=== PATIENT | female | born 1970 | race Caucasian/White ===

== ENCOUNTER 2018-10-25 14:33 | Emergency (ER) | payer SELFPAY ==
--- NOTE | 2018-10-25 14:49 | PDOC ---
Rapid Medical Evaluation Time Seen by Provider: 10/25/18 14:44 Medical Evaluation: 10/25/18 14:45 Pt c/o: head and neck throbbing pain x 6 months, relieved with motrin but returns, denies fever, visual changes or a pmd, no med tx prior to today pt on brief exam: vss, perrl, no lrom of neck pt ordered for: labs, ua, head ct pt to proceed to ED Discharge Disposition - Diagnosis Headache - Referrals - Patient Instructions - Post Discharge Activity
[2018-10-25] MEDS ORDERED: SODIUM CHLORIDE 1,000 ML IV STA (14:50)
[2018-10-25] MEDS ORDERED: KETOROLAC TROMETHAMINE 30 MG/1 ML VIAL IVPUSH ONE (14:50)
[2018-10-25 14:51] VITALS: BMI 22.2
[2018-10-25] MEDS ORDERED: METOCLOPRAMIDE HCL INJECTION 10 MG/2 ML VIAL ONE ×2 (15:39→16:27)
[2018-10-25] MEDS ORDERED: KETOROLAC TROMETHAMINE 30 MG/1 ML VIAL ONE ×2 (15:40→16:27)
--- NOTE | 2018-10-25 15:40 | PDOC ---
*Physical Exam - Vital Signs Last Vital Signs Temp Pulse Resp BP Pulse Ox 98.1 F 57 L 16 153/82 100 10/25/18 14:40 10/25/18 14:40 10/25/18 14:40 10/25/18 14:40 10/25/18 14:40 ED Treatment Course - LABORATORY CBC & Chemistry Diagram: 10/25/18 16:20 10/25/18 16:20 Medical Decision Making - Medical Decision Making 10/25/18 15:40 Ms. Usman Fishman is a 47 yo F who presents to the ER with 6 months of intermittent headaches (from the back of her neck and radiating around to her temples) Motrin which helps her symptoms but has not taken any meds today. Denies fevers, chills, nausea, vomiting, lightheadedness, dizziness, weakness and loss of consciousness. Pt pending CT Pending labs Given medications Awaiting results and re assessment Pt seen by Midlevel Provider under my direct supervision Ancillary studies pending I agree with plan as outlined by Midlevel Provider *DC/Admit/Observation/Transfer Diagnosis at time of Disposition: Headache Qualifiers: Headache type: tension-type Headache chronicity pattern: acute headache Intractability: not intractable Qualified Code(s): G44.209 - Tension-type headache, unspecified, not intractable - Discharge Dispostion Disposition: HOME Condition at time of disposition: Stable - Prescriptions Prescriptions: Butalb/Acetaminophen/Caffeine [Fioricet 50-300-40 mg Capsule] 1 each PO Q8H PRN #20 capsule PRN Reason: headache Methocarbamol [Robaxin -] 500 mg PO BID PRN #14 tablet PRN Reason: neck pain - Referrals Referrals: Pato Son MD [Staff Physician] - - Patient Instructions Printed Discharge Instructions: Tension Headache Additional Instructions: Your labs and head CAT scan is normal.Take prescribed medications as needed for headaches. Follow-up with referred neurologist if no improvement in 3 days Print Language: CITIZEN OF [place] - Post Discharge Activity
[2018-10-25] MEDS ORDERED: METOCLOPRAMIDE HCL INJECTION 10 MG/2 ML VIAL IVPB ONE (15:41)
--- NOTE | 2018-10-25 16:16 | PDOC ---
History of Present Illness - General Chief Complaint: Headache Stated Complaint: Headache Time Seen by Provider: 10/25/18 14:44 History Source: Patient Exam Limitations: Language Barrier (WhoJamracom used ) Past History - Travel Traveled outside of the country in the last 30 days: No Close contact w/someone who was outside of country & ill: No - Past Medical History Allergies/Adverse Reactions: Allergies Allergy/AdvReac Type Severity Reaction Status Date / Time No Known Allergies Allergy Verified 10/25/18 14:47 COPD: No - Suicide/Smoking/Psychosocial Hx Smoking History: Never smoked Hx Alcohol Use: No Drug/Substance Use Hx: No Review of Systems - Review of Systems Able to Perform ROS?: Yes Comments:: 10/25/18 16:11 CONSTITUTIONAL: Absent: fever, chills, diaphoresis, generalized weakness, malaise, loss of appetite HEENT: Present: neck pain Absent: rhinorrhea, nasal congestion, throat pain, throat swelling, difficulty swallowing, mouth swelling, ear pain, eye pain, visual Changes CARDIOVASCULAR: Absent: chest pain, loss of consciousness, palpitations, irregular heart rate, peripheral edema RESPIRATORY: Absent: cough, shortness of breath, dyspnea with exertion, orthopnea, wheezing, stridor, hemoptysis GASTROINTESTINAL: Absent: abdominal pain, abdominal distension, nausea, vomiting, diarrhea, constipation, melena, hematochezia GENITOURINARY: Absent: dysuria, frequency, urgency, hesitancy, hematuria, flank pain, genital pain MUSCULOSKELETAL: Absent: myalgia, arthralgia, joint swelling SKIN: Absent: rash, itching, pallor HEMATOLOGIC/IMMUNOLOGIC: Absent: easy bleeding, easy bruising, lymphadenopathy, frequent infections ENDOCRINE: Absent: unexplained weight gain, unexplained weight loss, heat intolerance, cold intolerance NEUROLOGIC: Present: headache Absent: focal weakness or paresthesias, dizziness, unsteady gait, seizure, mental status changes, bladder or bowel incontinence PSYCHIATRIC: Absent: anxiety, depression, suicidal or homicidal ideation, hallucinations. Is the patient limited Pashto proficient: No *Physical Exam - Vital Signs Last Vital Signs Temp Pulse Resp BP Pulse Ox 98.1 F 57 L 16 153/82 100 10/25/18 14:40 10/25/18 14:40 10/25/18 14:40 10/25/18 14:40 10/25/18 14:40 - Physical Exam Comments: 10/25/18 16:10 GENERAL: Well developed, well nourished. Awake and alert. No acute distress. HEENT: Normocephalic, atraumatic. PERRLA, EOMI. No conjunctival pallor. Sclera are non- icteric. Moist mucous membranes. Oropharynx is clear. NECK: TTP at the paraspinous muscles at the occipital insert b/l with palpable spasm. Supple. Decreased ROM d/t pain. No JVD. Carotid pulses 2+ and symmetric, without bruits. No thyromegaly. No lymphadenopathy. CARDIOVASCULAR: Regular rate and rhythm. No murmurs, rubs, or gallops. Distal pulses are 2+ and symmetric. PULMONARY: No evidence of respiratory distress. Lungs clear to auscultation bilaterally. No wheezing, rales or rhonchi. ABDOMINAL: Soft. Non-tender. Non-distended. No rebound or guarding. No organomegaly. Normoactive bowel sounds. MUSCULOSKELETAL Normal range of motion at all joints. No bony deformities or tenderness. No CVA tenderness. EXTREMITIES: No cyanosis. No clubbing. No edema. No calf tenderness. SKIN: Warm and dry. Normal capillary refill. No rashes. No jaundice. NEUROLOGICAL: Alert, awake, appropriate. Cranial nerves 2-12 intact. No deficits to light touch and temperature in face, upper extremities and lower extremities. No motor deficits in the in face, upper extremities and lower extremities. Normoreflexic in the upper and lower extremities. Normal speech. Toes are down- going bilaterally. Gait is normal without ataxia. PSYCHIATRIC: Cooperative. Good eye contact. Appropriate mood and affect. Medical Decision Making - Medical Decision Making 10/25/18 16:12 he patient is a 47-year-old female who presents to the ER with 6 months of intermittent headaches. She states that the pain is usually in the back of her neck and wraps around her temples She states she feels the pain behind her eyes. She usually takes Motrin which helps her symptoms. She states that today the pain was worse so she came to the ER for evaluation.She did not take any medication prior to arrival.Denies fevers, chillsnausea, vomiting, lightheadedness, dizziness weakness and loss of consciousness. A/P:Headache On exam patient with palpable paraspinous muscles in spasm at the base of the occiput bilaterally. The patient is able to touch her chin to her chest She also has decreased range of motion laterally in her neck due to pain. Patient is neurologically intact with no gross deficits. Suspect tension headaches d/t length of symptoms. Unlikely meningitis or SAH. CT scan basic labs, meds ordered Sign out given to PREMA Villanueva. Pt pending CT scan and lab results. *DC/Admit/Observation/Transfer Diagnosis at time of Disposition: Headache - Referrals - Patient Instructions - Post Discharge Activity
--- NOTE | 2018-10-25 16:46 | PDOC ---
*Physical Exam - Vital Signs Last Vital Signs Temp Pulse Resp BP Pulse Ox 98.1 F 57 L 16 153/82 100 10/25/18 14:40 10/25/18 14:40 10/25/18 14:40 10/25/18 14:40 10/25/18 14:40 - Physical Exam General Appearance: Yes: Nourished, Appropriately Dressed. No: Apparent Distress HEENT: positive: Normal ENT Inspection, Normal Voice Neck: positive: Supple Respiratory/Chest: positive: Lungs Clear, Normal Breath Sounds. negative: Respiratory Distress, Accessory Muscle Use Cardiovascular: positive: Regular Rhythm, Regular Rate Gastrointestinal/Abdominal: positive: Normal Bowel Sounds Integumentary: positive: Normal Color Neurologic: positive: station cashier II-XII NML intact, Fully Oriented, Alert, Normal Mood/ Affect, Normal Response ED Treatment Course - LABORATORY CBC & Chemistry Diagram: 10/25/18 16:20 10/25/18 16:20 - Medications Given in the ED: ED Medications Discontinued Medications Generic Name Dose Route Start Last Admin Trade Name Nevin PRN Reason Stop Dose Admin Diphenhydramine HCl 25 mg 10/25/18 14:50 10/25/18 16:35 Benadryl Injection - IVPUSH 10/25/18 14:51 25 mg ONCE ONE Administration Sodium Chloride 1,000 mls @ 1,000 mls/hr 10/25/18 14:50 10/25/18 16:35 Normal Saline - IV 10/25/18 15:49 1,000 mls/hr ASDIR STA Administration Ketorolac Tromethamine 30 mg 10/25/18 14:50 10/25/18 16:35 Toradol Injection - IVPUSH 10/25/18 14:51 30 mg ONCE ONE Administration Metoclopramide HCl 10 mg 10/25/18 15:41 10/25/18 16:35 Reglan Injection - IVPB 10/25/18 15:42 10 mg ONCE ONE Administration Medical Decision Making - Medical Decision Making 10/25/18 16:44 I resumed care of this 47-year-old female present with complaint of 6 months history of posterior neck pain and frontal headaches which has been his persistent. Denies nausea, vomiting, dizziness, fever or chills. CBC, CMP, UA and urine labs ordered from previous shift. IV hydration with normal saline being given by previous shift. Patient pending head CT and Zofran and Reglan given for headache 10/25/18 18:32 cbc,wbc unremarkable. head CT with no acute pathology. Patient symptoms likely tension GUEVARA caused by neck spasm. Patient stable for outpatient management on fioricet for headaches and robaxin muscle relaxer with neurology f/u *DC/Admit/Observation/Transfer Diagnosis at time of Disposition: Headache Qualifiers: Headache type: tension-type Headache chronicity pattern: acute headache Intractability: not intractable Qualified Code(s): G44.209 - Tension-type headache, unspecified, not intractable - Discharge Dispostion Disposition: HOME Condition at time of disposition: Stable Decision to Admit order: No - Prescriptions Prescriptions: Butalb/Acetaminophen/Caffeine [Fioricet 50-300-40 mg Capsule] 1 each PO Q8H PRN #20 capsule PRN Reason: headache Methocarbamol [Robaxin -] 500 mg PO BID PRN #14 tablet PRN Reason: neck pain - Referrals Referrals: Pato Son MD [Staff Physician] - - Patient Instructions Printed Discharge Instructions: Tension Headache Additional Instructions: Your labs and head CAT scan is normal.Take prescribed medications as needed for headaches. Follow-up with referred neurologist if no improvement in 3 days Print Language: [place] - Post Discharge Activity
[2018-10-25 17:19] LABS: BASO % 0.7 % (0-2.0); EOS % 3.2 % (0-4.5); HEMATOCRIT 36.4 % (32.4-45.2); HEMOGLOBIN 12.4 GM/dL (10.7-15.3); MCH 30.4 pg (25.7-33.7); MCHC 34.1 g/dl (32.0-36.0); MEAN CELL VOLUME 89.1 fl (80-96); MEAN PLT VOLUME 7.3 fl (7.5-11.1); MONO % 9.2 % (3.8-10.2); NEUT % 44.9 % (42.8-82.8); PLATELET COUNT 309 K/MM3 (134-434); RBC 4.08 M/mm3 (3.60-5.2); RDW 12.9 % (11.6-15.6); WHITE BLOOD COUNT 4.2 K/mm3 (4.0-10.0)
[2018-10-25 17:23] LABS: URINE APPEARANCE CLEAR; URINE BILIRUBIN NEGATIVE (NEGATIVE); URINE COLOR YELLOW; URINE GLUCOSE (UA) NEGATIVE (NEGATIVE); URINE KETONE NEGATIVE (NEGATIVE); URINE LEUK ESTERASE NEGATIVE (NEGATIVE); URINE NITRITE NEGATIVE (NEGATIVE); URINE PROTEIN NEGATIVE (NEGATIVE); URINE UROBILINOGEN 0.2 mg/dL (0.2-1.0)
[2018-10-25 17:30] LABS: BILIRUBIN,TOTAL 0.4 mg/dL (0.2-1); BLOOD UREA NITROGEN 10.9 mg/dL (7-18); CALCIUM 9.2 mg/dL (8.5-10.1); CREATININE 0.7 mg/dL (0.55-1.3); POTASSIUM 3.6 mmol/L (3.5-5.1); TOT PROT 7.4 g/dl (6.4-8.2)
[2018-10-25 18:58] VITALS: BP 154/89; PULSE 50; TEMP 97.8
== END 2018-10-25 19:00 | disposition home or self-care (01) ==
LOC: JER 14:33
PROC: 3E0333Z Introduction of Anti-inflammatory into Peripheral Vein, Percutaneous Approach (ICD-10-PCS; principal; 2018-10-25)
PROC: 3E0337Z Introduction of Electrolytic and Water Balance Substance into Peripheral Vein, Percutaneous Approach (ICD-10-PCS; 2018-10-25)
PROC: 3E033GC Introduction of Other Therapeutic Substance into Peripheral Vein, Percutaneous Approach (ICD-10-PCS; 2018-10-25)
DX: R51 Headache (principal)
CPT/HCPCS: 36415; 70450-TC; 80053; 81003; 83735; 84703; 85025; 99283-25; J7030

== ENCOUNTER 2020-10-15 18:26 | Emergency (ER) | payer OTHER ==
[2020-10-15 19:44] VITALS: TEMP 97; BMI 22.2
[2020-10-15 21:26] LABS: BASO % 0.7 % (0-2.0); EOS % 4.6 % (0-4.5); HEMATOCRIT 36.7 % (32.4-45.2); HEMOGLOBIN 12.5 GM/dL (10.7-15.3); LYMPH % 36.9 % (8-40); MCH 29.8 pg (25.7-33.7); MCHC 34.1 g/dl (32.0-36.0); MEAN CELL VOLUME 87.4 fl (80-96); MEAN PLT VOLUME 6.8 fl (7.5-11.1); MONO % 10.4 % (3.8-10.2); NEUT % 47.4 % (42.8-82.8); PLATELET COUNT 298 10^3/uL (134-434); RBC 4.19 M/mm3 (3.60-5.2); RDW 13.8 % (11.6-15.6); WHITE BLOOD COUNT 5.3 K/mm3 (4.0-10.0)
[2020-10-15 21:43] LABS: CHLORIDE 106 mmol/L (98-107); SODIUM 141 mmol/L (136-145)
[2020-10-15 21:45] LABS: ALBUMIN 4.1 g/dl (3.4-5.0); ANION GAP 4 MMOL/L (8-16); CALCIUM 9.3 mg/dL (8.5-10.1); CO2 32 mmol/L (21-32)
[2020-10-15 21:46] LABS: BLOOD UREA NITROGEN 17.6 mg/dL (7-18); GLUCOSE,RANDOM 84 mg/dL (74-106)
[2020-10-15 21:48] LABS: SGOT/AST 26 U/L (15-37); SGPT/ALT 36 U/L (13-61)
[2020-10-15 21:49] LABS: CREATININE 0.9 mg/dL (0.55-1.3)
[2020-10-15 21:50] LABS: BILIRUBIN,TOTAL 0.3 mg/dL (0.2-1); TOT PROT 7.7 g/dl (6.4-8.2)
[2020-10-15 21:51] LABS: ALK PHOS 51 U/L (45-117)
[2020-10-15 22:24] LABS: ERYTHROCYTE SEDIMENTATION RATE 7 mm/hr (0-20)
[2020-10-16 00:44] VITALS: BP 133/83; PULSE 60
== END 2020-10-16 01:44 | disposition short-term general hospital (02) ==
LOC: JER 18:26
DX: H53.8 Other visual disturbances (principal)
CPT/HCPCS: 36415; 70450-TC; 76512; 80053; 84703; 85025; 85651; 86140; 99285-25

== ENCOUNTER 2022-09-16 12:38 | Emergency (ER) | payer OTHER ==
[2022-09-16 12:45] VITALS: BP 124/72; PULSE 58; RESP 18; TEMP 97.8; BMI 24.3
[2022-09-16 14:01] LABS: URINE APPEARANCE CLEAR; URINE BILIRUBIN NEGATIVE (NEGATIVE); URINE COLOR YELLOW; URINE GLUCOSE (UA) NEGATIVE (NEGATIVE); URINE KETONE NEGATIVE (NEGATIVE); URINE LEUK ESTERASE NEGATIVE (NEGATIVE); URINE NITRITE NEGATIVE (NEGATIVE); URINE PROTEIN NEGATIVE (NEGATIVE); URINE UROBILINOGEN 0.2 mg/dL (0.2-1.0)
[2022-09-16 14:03] LABS: BASO % 0.8 % (0-2.0); EOS % 3.8 % (0-4.5); HEMATOCRIT 37.5 % (32.4-45.2); HEMOGLOBIN 12.3 GM/dL (10.7-15.3); MCH 28.7 pg (25.7-33.7); MCHC 32.8 g/dl (32.0-36.0); MEAN CELL VOLUME 87.4 fl (80-96); MEAN PLT VOLUME 7.6 fl (7.5-11.1); MONO % 9.5 % (3.8-10.2); NEUT % 42.9 % (42.8-82.8); PLATELET COUNT 298 10^3/uL (134-434); RBC 4.29 M/mm3 (3.60-5.2); RDW 13.5 % (11.6-15.6)
[2022-09-16 14:33] LABS: POTASSIUM 4.1 mmol/L (3.5-5.1)
[2022-09-16 14:36] LABS: CALCIUM 9.5 mg/dL (8.5-10.1)
[2022-09-16 14:37] LABS: ALBUMIN 3.7 g/dl (3.4-5.0); BLOOD UREA NITROGEN 17.1 mg/dL (7-18)
[2022-09-16 14:39] LABS: CREATININE 0.6 mg/dL (0.55-1.3)
[2022-09-16 14:41] LABS: BILIRUBIN,TOTAL 0.3 mg/dL (0.2-1)
== END 2022-09-16 18:17 | disposition home or self-care (01) ==
LOC: JER 12:38
DX: R10.32 Left lower quadrant pain (principal)
CPT/HCPCS: 36415; 74177-TC; 80053; 81003; 82150; 83690; 84703; 85025; 87086; 99285-25; Q9967